=== PATIENT | female | born 1990 | race Caucasian/White ===

== ENCOUNTER 2021-08-17 11:57 | Emergency (ER) | payer OTHER ==
[~2021-08-17] VITALS: Ht 162.6 cm; Wt 81.7 kg
[~2021-08-17 11:57] MED LIST: Benadryl25 MG PO; HYDR1TAB94 PO; ONDA4ODT MM; PARO10; PROM25 PO; Prednisone20 MG PO
[2021-08-17] MEDS ORDERED: CYCL10 PO (12:48)
== END 2021-08-17 13:03 | disposition home or self-care (01) ==
LOC: ER 11:57
DX: S16.1XXA Strain of muscle, fascia and tendon at neck level, initial encounter (principal); X58.XXXA Exposure to other specified factors, initial encounter
CPT/HCPCS: 99283; A9270; J1885

== ENCOUNTER 2021-09-08 17:06 | Observation (INO) | payer OTHER ==
[~2021-09-08] VITALS: Ht 162.6 cm; Wt 84.2 kg
[~2021-09-08 17:06] MED LIST changes: +CYCL10 PO
[2021-09-08 21:24] LABS: BASOPHILS ABSOLUTE AUTO 0.04 K/mm3 (0.00-0.23); BASOPHILS PERCENT AUTO 1 % (0-2); EOSINOPHILS ABSOLUTE AUTO 0.58 K/mm3 (0.00-0.68); EOSINOPHILS PERCENT AUTO 8 % (0-6); Hematocrit 38.7 % (33.0-51.0); Hemoglobin 12.2 g/dL (11.5-16.0); IMMATURE GRAN ABSOLUTE AUTO 0.01 K/mm3 (0.00-0.10); IMMATURE GRAN PERCENT AUTO 0 % (0-1); LYMPHOCYTES ABSOLUTE AUTO 2.94 K/mm3 (0.84-5.20); LYMPHOCYTES PERCENT AUTO 39 % (21-46); MONOCYTES PERCENT AUTO 5 % (4-13); Mean Corpuscular HGB 30.3 pg (26.0-34.0); Mean Corpuscular HGB Conc 31.5 g/dL (31.5-36.5); Mean Corpuscular Volume 96 fL (80-100); Mean Platelet Volume 9.4 fL (9.1-12.4); NEUTROPHILS ABSOLUTE AUTO 3.53 K/mm3 (1.96-9.15); NEUTROPHILS PERCENT AUTO 47 % (41-73); Platelet Count 231 K/mm3 (150-400); RDW Coefficient Variation 12.4 % (11.7-14.2); RDW Standard Deviation 43.7 fL (35.1-46.3); Red Blood Cell Count 4.03 M/mm3 (3.80-5.20)
--- NOTE | 2021-09-08 23:25 | NUR ---
ADMIT PT ARRIVED TO FLOOR @2211 VIA GURNEY. SBY ASSIST TO BED. ADMITTED FOR VAGINAL BLEEDING & ABD PAIN. ORIENTED TO & CALL LIGHT. WCTM.
[2021-09-08 23:51] LABS: Influenza A, PCR NEGATIVE (NEGATIVE); Influenza B, PCR NEGATIVE (NEGATIVE); Resp Syncytial Virus, PCR NEGATIVE (NEGATIVE); SARS-Cov-2 (COVID-19) PCR, MMC NEGATIVE (NEGATIVE)
[2021-09-09 01:29] LABS: Hematocrit 33.3 % (33.0-51.0); Hemoglobin 10.9 g/dL (11.5-16.0); Mean Corpuscular HGB 30.6 pg (26.0-34.0); Mean Corpuscular HGB Conc 32.7 g/dL (31.5-36.5); Mean Corpuscular Volume 94 fL (80-100); Mean Platelet Volume 9.4 fL (9.1-12.4); Platelet Count 225 K/mm3 (150-400); RDW Coefficient Variation 12.4 % (11.7-14.2); Red Blood Cell Count 3.56 M/mm3 (3.80-5.20); White Blood Cell Count 7.94 K/mm3 (4.00-11.30)
--- NOTE | 2021-09-09 05:41 | NUR ---
SHIFT SUMMARY AOX4. VSS. ADMITTED FOR INCREASED VAGINAL BLEEDING. REPORTED 10/10 HEADACHE UPON ARRIVING TO FLOOR, MEDICATED 1X c TYLENOL, STATED RELIEF & PAIN LEVEL DROPPED TO 2/10. REPORTED SLIGHT ABD DISCOMFORT 3/10, STATED PAIN LEVEL BETTER AFTER ER MD REMOVED BLOOD CLOTS. PT CHANGED MELITA PAD, ONLY SM BASEBALL SIZE AMOUNT RED DRAINAGE ON PAD, NOT SOAKED THROUGH. PT STATES SHE IS BLEEDING ALOT LESS, NO CLOTS NOTICED. DENIES N/V OR SOB. PLAN TO HAVE EXAM THIS AM BY OBGYN. CALL LIGHT IN REACH. WCTM UNTIL DAY SHIFT RN ASSUMES CARE.
[2021-09-09 06:01] LABS: Hematocrit 32.5 % (33.0-51.0); Hemoglobin 10.7 g/dL (11.5-16.0); Mean Corpuscular HGB 30.5 pg (26.0-34.0); Mean Corpuscular HGB Conc 32.9 g/dL (31.5-36.5); Mean Corpuscular Volume 93 fL (80-100); Mean Platelet Volume 9.5 fL (9.1-12.4); Platelet Count 205 K/mm3 (150-400); RDW Coefficient Variation 12.4 % (11.7-14.2); RDW Standard Deviation 42.2 fL (35.1-46.3); Red Blood Cell Count 3.51 M/mm3 (3.80-5.20); White Blood Cell Count 6.72 K/mm3 (4.00-11.30)
[2021-09-09 07:21] LABS: Candida species (DNA Probe) Negative (NEGATIVE); G. vaginalis (DNA Probe) Negative (NEGATIVE); T. vaginalis (DNA Probe) Negative (NEGATIVE)
[2021-09-09 09:54] LABS: Hematocrit 33.3 % (33.0-51.0); Hemoglobin 10.9 g/dL (11.5-16.0); Mean Corpuscular HGB 30.3 pg (26.0-34.0); Mean Corpuscular HGB Conc 32.7 g/dL (31.5-36.5); Mean Corpuscular Volume 93 fL (80-100); Mean Platelet Volume 9.4 fL (9.1-12.4); Platelet Count 226 K/mm3 (150-400); RDW Coefficient Variation 12.4 % (11.7-14.2); RDW Standard Deviation 42.1 fL (35.1-46.3); White Blood Cell Count 5.05 K/mm3 (4.00-11.30)
--- NOTE | 2021-09-09 11:06 | NUR ---
DISCHARGE: DISCHARGE INSTUCTIONS GIVEN TO PATIENT AT THIS TIME. NO SIGNS OR SYMPOTMS ACUTE DISTRESS NOTED. DR NORWOOD DID PELVIC EXAM IN ROOM, PATIENT TOLERATED WELL. PATIENT IS GETTING DRESSED AND WILL BE DRIVING HOME IN HER CAR. PATIENT HAS NOT HAD ANY NARCOTICS SINCE YESTERDAY AND IS SAFE TO DRIVE HOME. IV REMOVED.
[2021-09-11 18:11] LABS: CHLAMYDIA TRACHOMATIS, NAA Negative (Negative)
== END 2021-09-09 11:47 | disposition home or self-care (01) ==
LOC: ER 17:06 → SURS 17:07
PROVIDERS: Student in an Organized Health Care Education/Training Program; ADMIT Obstetrics & Gynecology
DX: O03.6 Delayed or excessive hemorrhage following complete or unspecified spontaneous abortion (principal); E28.2 Polycystic ovarian syndrome; F17.200 Nicotine dependence, unspecified, uncomplicated; Z20.822 Contact with and (suspected) exposure to COVID-19
CPT/HCPCS: 0241U; 36415; 76830; 76856; 84702; 85025; 85027; 86850; 86900; 86901; 87480; 87510; 87660; 99285-25; A9270

== ENCOUNTER 2021-10-19 22:58 | Emergency (ER) | payer OTHER ==
[~2021-10-19] VITALS: Ht 160 cm; Wt 87.5 kg
[2021-10-20 01:19] LABS: Source, Urine Clean Catch
[2021-10-20 01:24] LABS: Bilirubin, Urine Neg (Neg); Blood, Urine 5+ (Neg); Glucose Qualitative, Urine Neg (Neg); Ketones, Urine Neg (Neg); Leukocyte Esterase, Urine Neg (Neg); Nitrite, Urine Neg (Neg); Protein, Urine Neg (Neg); Urobilinogen, Urine NORM (Normal)
[2021-10-20 02:09] LABS: Appearance, Urine Hazy (Clear); Color, Urine Yellow (P-Yellow)
[2021-10-20 02:17] LABS: Amorphous Light (0-Heavy); Bacteria Rare /hpf; Mucus Light (0-Heavy); Red Blood Cells, Urine TNTC /hpf (0-2); Squamous Epithelial Cells Few /hpf (Few); White Blood Cells, Urine Rare /hpf (0-5)
== END 2021-10-20 03:34 | disposition home or self-care (01) ==
LOC: ER 22:58
PROVIDERS: Student in an Organized Health Care Education/Training Program
DX: N93.9 Abnormal uterine and vaginal bleeding, unspecified (principal); E28.2 Polycystic ovarian syndrome; Z87.42 Personal history of other diseases of the female genital tract; F17.210 Nicotine dependence, cigarettes, uncomplicated
CPT/HCPCS: 81001; 81025; 99284-25